=== PATIENT | female | born 1995 | race Asian ===

== ENCOUNTER 2021-10-14 16:44 | Outpatient (REF) | payer OTHER, SELFPAY ==
[2021-10-14 17:31] LABS: Influenza A PCR NEGATIVE (Negative); Influenza B PCR NEGATIVE (Negative); Resp Syncy Virus RNA Qual PCR NEGATIVE (Negative); SARS COV2 PCR INHOUSE NEGATIVE (Negative)
== END 2021-10-14 16:45 | disposition home or self-care (01) ==
LOC: HO.LNP 16:44
PROVIDERS: Visit Provider Internal Medicine
DX: R09.89 Other specified symptoms and signs involving the circulatory and respiratory systems (principal); Z20.822 Contact with and (suspected) exposure to COVID-19
CPT/HCPCS: 0241U

== ENCOUNTER 2023-03-15 11:38 | Outpatient (REF) | payer OTHER, SELFPAY ==
[2023-03-16 12:21] LABS: Influenza A PCR NEGATIVE (Negative); Influenza B PCR NEGATIVE (Negative); Resp Syncy Virus RNA Qual PCR NEGATIVE (Negative); SARS COV2 PCR INHOUSE POSITIVE (Negative)
== END 2023-03-15 11:39 | disposition home or self-care (01) ==
LOC: HO.HMGCLNP 11:38
PROVIDERS: Visit Provider Physician Assistant
DX: Z11.52 Encounter for screening for COVID-19 (principal); R68.89 Other general symptoms and signs
CPT/HCPCS: 0241U

== ENCOUNTER 2023-03-15 15:31 | Outpatient (AMB) | payer OTHER, SELFPAY ==
--- NOTE | 2023-03-15 15:40 | MHC.OFFWIV ---
Intake Vital Signs 03/15/23 15:41 Height 5 ft 5 in Weight 124 lb 4 oz BMI 20.7 BP 110/72 Blood Pressure Location Rt brachial Position Sitting Pulse 90 Pulse Source Pulse Oximeter Temp 98.1 F Temp Source Oral Pulse Oximetry (%) 98 Oxygen Delivery Method Room Air Intake Visit Reasons: EST/cough (lobby masked) Intake Note: Pt is here today for cough and ongoing fevers Patient Tobacco Use Status: Never used Tobacco Allergies No Known Allergies Allergy (Verified 03/15/23 15:42) Do you need a note to return to daycare/school/sports/work: No HPI HPI Comments History of Present Illness Details Patient is a 27yo F with flu like symptoms x 4 days + subjective fever, chills body aches and fatigue Using OTC tylenol/motrin which helps No fever today + congestion and cough Eating/drinking well No CP or SOB No covid test taken [facility] Social History Patient Tobacco Use Status: Never used Tobacco Review of Systems Const Reports body aches, Reports chills, Reports fatigue and Reports fever(s) (subjective) Eyes Denies blurry vision ENT Denies otalgia, Reports nasal congestion, Denies nasal discharge and Denies sore throat Card Denies chest pain and Denies dyspnea Resp Reports chest congestion, Reports cough and Denies dyspnea GI Denies abdominal pain Musc Reports myalgias Endo Reports fatigue Physical Exam Vital Signs: Last Vital Signs Temp 98.1 F 03/15/23 15:41 Pulse 90 03/15/23 15:41 BP 110/72 03/15/23 15:41 Pulse Ox 98 03/15/23 15:41 Oxygen Delivery Method Room Air 03/15/23 15:41 BMI result Body Mass Index 20.7 General: Non-toxic, NAD. Speaking full sentences. Skin: Warm dry throughout Eye: EOMI HENT: Airway patent. Uvula midline. No pharyngeal erythema or edema. No DIGITAL WATCH ASSEMBLER. Respiratory: CTA bilaterally. No wheezes, rales or rhonchi Cardiac: RRR. No murmur MSK: Full ROM extremities. Neurology: A/O. No aphasia or facial droop. Gait without abnormality Psych: Good mood and affect Assessment & Plan Assessment & Plan (1) Flu-like symptoms: Code(s): R68.89 - Other general symptoms and signs Plan: Patient seen and evaluated. Lungs CTA RSV/flu/covid swab obtained tessalon for cough tylenol/motrin fluids/rest Patient gave verbal understanding and had no additional questions or concerns at time of discharge All questions answered Orders: Orders SARS-CoV2/FLU/RSV Today R68.89 - Other general symptoms and signs Medications: New benzonatate 100 mg PO BID-TID PRN 14 caps 0RF cough Coding Level of Care Code Est Pt Level 3 (55295) Diagnoses Flu-like symptoms R68.89
[2023-03-15 15:41] VITALS: BP 110/72; PULSE 90; TEMP 36.7; O2SAT 98; BMI 20.7
== END 2023-03-15 16:22 | disposition home or self-care (01) ==
PROVIDERS: PCP Internal Medicine; Visit Provider Physician Assistant
DX: R68.89 Other general symptoms and signs (principal)
CPT/HCPCS: 99213

== ENCOUNTER 2023-04-19 13:57 | Outpatient (AMB) | payer OTHER, SELFPAY ==
[2023-04-19 14:00] VITALS: BP 106/68; PULSE 97; O2SAT 99; BMI 20.5
--- NOTE | 2023-04-19 14:00 | A.OFFPC_ITS ---
Vital Signs 04/19/23 14:00 Height 5 ft 5 in Weight 123 lb 6 oz BMI 20.5 BP 106/68 Blood Pressure Location Lt brachial Position Sitting Pulse 97 Pulse Source Pulse Oximeter Pulse Oximetry (%) 99 Oxygen Delivery Method Room Air Intake Visit Reasons: Re-establish Care /Request PE Allergies No Known Allergies Allergy (Verified 04/19/23 14:01) Medication List - Last Reconciled 04/19/23 by Miesha Nicole MD No Known Home Meds Tobacco use date assessed: 04/19/23 Dental Screening Dental Screen Date: 04/19/23 Did you have a dental visit in the last 12 months?: Yes Did you have a dental problem in the last 6 months where you did not have access to dental care?: No Was dental information given to patient?: Patient has dentist HPI Re-establish Care /Request PE HPI Details 27-year-old female came in for physical examination and establish care Patient has been having irregular menstrual cycle for a while, she says that she gets menses 5 times a year She is in need of OBGYN as well I have ordered labs I have added thyroid antibodies as patient have a family history of thyroid disease in mother and sister On examination her thyroid seems to be slightly enlarged, I have ordered ultrasound as well We will follow-up after the reports [facility] Social History Housing: Apartment Patient Tobacco Use Status: Never used Tobacco e-Cigarette/Vaping Use: Never Used service: No Cognitive needs: No Hearing needs: No Vision needs: No Questionnaire AUDIT C Alcohol Use Questionnaire (AUDIT-C) 1. How often do you have a drink containing alcohol?: Never 3. How often do you have six or more drinks on one occasion?: Never Total Score: 0 Score Reviewed/Action Taken: Yes Review of Systems Const Denies chills, Denies fever(s) and Denies headache(s) Eyes Denies blurry vision ENT Denies headache(s), Denies nasal discharge, Denies nasal obstruction, Denies odynophagia and Denies sinus pain Card Denies chest pain at rest and Denies chest pain with activity Resp Denies cough and Denies hemoptysis GI Denies diarrhea, Denies odynophagia, Denies vomiting and Denies hematemesis Reports as per HPI Musc Denies abnormal gait Skin/Breast Reports as per HPI Neuro Denies Neuro-related abnormal movements, Denies Abnormal speech present, Denies abnormal gait, Denies headache(s) and Denies Sensory deficit (Neuro) Psych Denies mood swings and Denies paranoia Endo Reports as per HPI James/Lymph Reports as per HPI Aller/Immun Reports as per HPI Physical exam (Primary Care) Vital Signs: Last Vital Signs Pulse 97 04/19/23 14:00 BP 106/68 04/19/23 14:00 Pulse Ox 99 04/19/23 14:00 Oxygen Delivery Method Room Air 04/19/23 14:00 BMI result Body Mass Index 20.5 Tobacco/Smoking Status: Tobacco use Status Tobacco use date assessed 04/19/23 04/19/23 14:08 Patient Tobacco Use Status Never used Tobacco 04/19/23 14:08 e-Cigarette/Vaping Use Never Used 04/19/23 14:08 Const General: cooperative, comfortable and no acute distress Orientation/consciousness: patient oriented x3 HENMT Head: Yes normocephalic and Yes atraumatic Eyes General: appearance normal, both eyes and all related structures Pupils: Equal, round and reactive pupils present EOM: EOMs intact bilaterally Neck Other: Thyroid slightly diffusely enlarged Neck: Yes supple and No lymphadenopathy Resp Effort & Inspection: normal respiratory effort and able to speak in complete sentences Auscultation: clear to auscultation bilaterally Cardio Heart sounds: S1 normal heart sound present and S2 normal heart sound present GI Palpation (GI): Soft to palpation and nontender Auscultation: normal bowel sounds General: Yes no CVA tenderness Back/Spine/Pelvis Back: no CVA tenderness Skin General skin exam: elasticity normal and turgor normal Neuro General: patient oriented x3 and gait normal Cranial nerves: Yes Equal, round and reactive pupils present Speech: No Abnormal speech present Sensory Exam: No Sensory deficit (Neuro) Coordination: tandem gait normal and Romberg test negative Extrem General: Yes normal exam except as noted and No edema Assessment and Plan Assessment & Plan (1) Encounter for general adult medical examination with abnormal findings: Code(s): Z00.01 - Encounter for general adult medical examination with abnormal findings (2) Irregular menses: Code(s): N92.6 - Irregular menstruation, unspecified (3) 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 (4) Family history of thyroid disease: Code(s): Z83.49 - Family history of other endocrine, nutritional and metabolic diseases Plan 27-year-old female came in for physical examination and establish care Patient has been having irregular menstrual cycle for a while, she says that she gets menses 5 times a year She is in need of OBGYN as well I have ordered labs I have added thyroid antibodies as patient have a family history of thyroid disease in mother and sister On examination her thyroid seems to be slightly enlarged, I have ordered ultrasound as well We will follow-up after the reports Orders: Orders Lipid Panel Today N92.6 - Irregular menstruation, unspecified, Z00.01 - Encounter for general adult medical examination with abnormal findings TSH reflex Free T4 Today N92.6 - Irregular menstruation, unspecified, Z00.01 - Encounter for general adult medical examination with abnormal findings Vitamin D 25-OH (D2 and D3) Today N92.6 - Irregular menstruation, unspecified, Z00.01 - Encounter for general adult medical examination with abnormal findings Complete Blood Count Auto Diff Today N92.6 - Irregular menstruation, unspecifie d, Z00.01 - Encounter for general adult medical examination with abnormal findings Comprehensive Met. Panel Today N92.6 - Irregular menstruation, unspecified, Z00.01 - Encounter for general adult medical examination with abnormal findings US thyroid Today E01.0 - Iodine-deficiency related diffuse (endemic) goiter, Z83.49 - Family history of other endocrine, nutritional and metabolic diseases Thyroglobulin Antibodies Today E01.0 - Iodine-deficiency related diffuse (endemic) goiter, Z83.49 - Family history of other endocrine, nutritional and metabolic diseases Referrals OUTBOUND TELEMARKETER Referral N92.6 - Irregular menstruation, unspecified Coding Level of Care Code New Pt Prev Care 18-39yr([id number] Diagnoses Encounter for general adult medical examination with abnormal findings Z00.01 Irregular menses N92.6 Thyromegaly E01.0 Family history of thyroid disease Z83.49
== END 2023-04-19 16:17 | disposition home or self-care (01) ==
PROVIDERS: PCP Internal Medicine; Visit Provider Internal Medicine
DX: Z00.00 Encounter for general adult medical examination without abnormal findings (principal); N92.6 Irregular menstruation, unspecified; E01.0 Iodine-deficiency related diffuse (endemic) goiter; Z83.49 Family history of other endocrine, nutritional and metabolic diseases
CPT/HCPCS: 99395

== ENCOUNTER 2023-04-25 10:38 | Outpatient (REF) | payer OTHER, SELFPAY ==
--- NOTE | ~2023-04-25 | US_ITS ---
EXAMINATION: US THYROID CLINICAL INFORMATION: Iodine-deficiency related diffuse (endemic) goiter. COMPARISON: Thyroid ultrasound 03/18/2019. TECHNIQUE: Linear transducer grayscale and color Doppler examination with attention to the region of the thyroid. FINDINGS: SIZE: Measurements of the thyroid lobes and nodules are given in sagittal, anteroposterior and transverse dimensions respectively. Right Thyroid Lobe: 5.2 x 1.2 x 1.4 cm, volume 4.5 mL. Previously 5.4 x 1.4 x 1.4 cm, volume 5.5 mL. Parenchyma: The gland echotexture is mildly heterogeneous. Thyroid vascularity is increased. Left Thyroid Lobe: 4.7 x 1.3 x 1.2 cm, volume 3.7 mL. Previously 5.3 x 1.2 x 1.3 cm, volume 4.3 mL. Parenchyma: The gland echotexture is mildly heterogeneous. Thyroid vascularity is increased. Isthmus: 0.3 cm in maximum AP dimension. Previously 0.3 cm. No focal thyroid nodule is seen. NODES: No lymphadenopathy is seen in the tissue surrounding the thyroid gland. US/US thyroid IMPRESSION: No suspicious thyroid nodules. Mildly heterogeneous thyroid gland. ACR TI-RADS RECOMMENDATION REFERENCE: Ultrasound-guided fine-needle aspiration, followup ultrasound, no further followup. * TR1 (0 point) and TR2 (2 points): No FNA or followup. * TR3 (3 points): FNA if more than or equal to 2.5 cm in maximum dimension, followup ultrasound in 1, 3 and 5 years if 1.5 to 2.4 cm in maximum dimension. * TR4 (4-6 points): FNA if more than or equal to 1.5 cm in maximum dimension, follow up ultrasound in 1, 2, 3 and 5 years if 1 to 1.4 cm in maximum dimension. * TR5 (more than or equal to 7 points): FNA if more than or equal to 1 cm in maximum dimension, followup ultrasound every year for 5 years if 0.5 to 0.9 cm in maximum dimension. * TR3, TR4 or TR5 nodules that are below the size threshold for followup receive no followup.
[2023-04-25 13:21] LABS: MANUAL DIFF FLAG NO
[2023-04-25 13:35] LABS: Basophils Percent Auto 0.5 % (0-2); Eosinophils Absolute Auto 0.1 X10*3/uL (0.0-0.4); Eosinophils Percent Auto 2.2 % (0-4); Hematocrit 36.9 % (37.0-47.0); Hemoglobin 12.2 g/dl (12.0-16.0); Imm Gran Abs Auto 0.01 X10*3/uL (0.00-0.03); Imm Gran Pct Auto 0.2 % (0.0-0.4); Lymphocytes Absolute Auto 2.1 X10*3/uL (1.2-4.9); Lymphocytes Percent Auto 35.3 % (20-40); Mean Corpuscular HGB Conc 33.1 g/dl (31.0-35.0); Mean Corpuscular Hemoglobin 26.8 pg (27.0-33.0); Mean Corpuscular Volume 81.1 fL (80.0-98.0); Mean Platelet Volume 9.4 fL (9.4-12.3); Monocytes Absolute Auto 0.2 X10*3/uL (0.1-1.2); Monocytes Percent Auto 3.9 % (2-11); Neutrophils Absolute Auto 3.4 x10*3/uL (2.0-8.3); Neutrophils Percent Auto 57.9 % (45-73); Platelet Count 333 X10*3/uL (160-400); Red Blood Count 4.55 X10*6/uL (4.20-5.50); Red Cell Distribution Width 12.5 % (11.0-16.0); White Blood Count 5.8 X10*3/uL (4.8-10.8)
[2023-04-25 13:58] LABS: Alanine Aminotransferase 10 U/L (0-31); Albumin Level 4.3 g/dL (3.5-5.0); Alkaline Phosphatase 83 U/L (39-117); Anion Gap 11 (12-20); Aspartate Amino Transferase 14 U/L (5-31); Blood Urea Nitrogen 16 mg/dL (9-16); Calcium 9.5 mg/dL (8.4-10.2); Carbon Dioxide 27 mmol/L (22-29); Chloride 107 mmol/L (96-108); Cholesterol 147 mg/dL (<200); Estimated Glomerular Filt Rate > 60; Glucose Random 87 mg/dL (60-115); HDL Cholesterol 58 mg/dL (>40); LDL Cholesterol Calculated 79 mg/dL (<100); Potassium 3.9 mmol/L (3.3-5.1); Sodium 141 mmol/L (135-145); Total Protein 7.8 g/dL (6.5-8.0); Triglycerides 54 mg/dL (<150)
[2023-04-25 14:04] LABS: TSH reflex Free T4 2.14 uIU/mL (0.32-4.0)
[2023-04-26 08:54] LABS: Thyroglobulin Antibodies <1 IU/mL (< or = 1)
[2023-04-28 16:08] LABS: Vitamin D 25-OH, D2 <4 ng/mL; Vitamin D 25-OH, D3 4 ng/mL; Vitamin D 25-OH, Total 4 ng/mL (30-100)
== END 2023-04-25 10:39 | disposition home or self-care (01) ==
LOC: HO.HMGCX 10:38
PROVIDERS: PCP Internal Medicine; Visit Provider Internal Medicine
DX: Z00.01 Encounter for general adult medical examination with abnormal findings (principal); N92.6 Irregular menstruation, unspecified; E01.0 Iodine-deficiency related diffuse (endemic) goiter; Z83.49 Family history of other endocrine, nutritional and metabolic diseases
CPT/HCPCS: 36415; 76536; 80053; 80061; 82306; 84443; 85025; 86800

== ENCOUNTER → 2024-03-29 13:46 | Outpatient (BNVA) | payer OTHER, SELFPAY | PROVIDERS: PCP Internal Medicine; Visit Provider Internal Medicine | DX: Z23 Encounter for immunization (principal) | CPT/HCPCS: 90471; 90621 ==

== ENCOUNTER 2024-04-18 07:57 | Outpatient (AMB) | payer OTHER, SELFPAY ==
--- OUTSIDE RECORDS SUMMARY | 2024-04-18 07:59 | XMS_ITS | Encounter Summary ---
Author Organization [employer] Address [address] [facility] [address] [place] [address] Care Team Providers Care Utility Sales Representative Name Role Phone Unavailable Primary Care Provider Unavailabl e Encounter Details Date Type Department Care Team (Latest Contact Info) Description 07/04/2018 Abstract [facility] CONVERSIONS Dental, Provider, DDS Social History Tobacco Use Types Packs/Day Years Used Date Smoking Tobacco: Never Assessed Comments Unknown Sex and Gender Information Value Date Recorded Sex Assigned at Female 01/03/2022 10:34 AM EDT Legal Sex Female 10:34 AM EDT Gender Identity Female 01/03/2022 10:34 AM EDT Sexual Orientation Straight 01/03/2022 10 :34 AM EDT documented as of this encounter Plan of Treatment Not on file documented as of this encounter Visit Diagnoses Not on filedocumented in this encounter
--- OUTSIDE RECORDS SUMMARY | 2024-04-18 07:59 | XMS_ITS | Clinical Summary ---
Author Organization [employer] Address [address] [facility] [address] [place] [address] Care Team Providers Care Microsoft Dynamics Ax Developer Name Role Phone Unavailable Primary Care Provider Unavailabl e Social History Tobacco Use Types Packs/Day Years Used Date Smoking Tobacco: Never Assessed Comments Unknown Sex and Gender Information Value Date Recorded Sex Assigned at Female 01/03/2022 10:34 AM EDT Legal Sex Female 10:34 AM EDT Gender Identity Female 01/03/2022 10:34 AM EDT Sexual Orientation Straight 01/03/2022 10 :34 AM EDT Plan of Treatment Health Maintenance Due Date Last Done Comments Depression Screening 1997 Alcohol/Substance Use Screening 2009 Tobacco Screening 2009 Family Planning (PISQ) 2012 HPV Vaccines (1 - 3-dose series) 2012 DTaP/Tdap/Td Vaccines (1 - Tdap) 2016 Hepatitis B Vaccines (1 of 3 - 19+ 3-dose series) 2016 Pap Smear 2018 COVID-19 Vaccine (1 - 2023-2 5 season) 2023 Influenza Vaccine (#1) 2023 Zoster Vaccines (1 of 2) 09/07/2047 RSV Patients and Pa tients Aged 60 years or older (1 - 1-dose 75+ series) 2072 HIB Vaccines Aged Out No longer eligi ble based on patient's age to complete this topic Hepatitis A Vaccines Aged Out No long er eligible based on patient's age to complete this topic IPV Vaccines Aged Out No longer eligi ble based on patient's age to complete this topic Meningococcal Vaccine Aged Out No ericka becky eligible based on patient's age to complete this topic Pneumococcal Vaccine: Pediat rics (0 to 5 Years) and At-Risk Patients (6 to 49) Years) Aged Out No longer eligible b ased on patient's age to complete this topic RSV under 20 months Aged Out No longe r eligible based on patient's age to complete this topic Rotavirus Vaccines Aged Out No longer eligible based on patient's age to complete this topic
--- NOTE | 2024-04-18 09:15 | MHC.PC.OV ---
Intake Visit Reasons: General health/heavy menstrual period Allergies No Known Allergies Allergy (Verified 04/18/24 09:15) Medication List - Last Reconciled 04/18/24 by Miesha Nicole MD cholecalciferol (vitamin D3) 25 mcg PO DAILY 90 days Tobacco use date assessed: 04/18/24 Dental Screening Dental Screen Date: 04/18/24 Did you have a dental visit in the last 12 months?: Yes Did you have a dental problem in the last 6 months where you did not have access to dental care?: No Was dental information given to patient?: Patient has dentist HPI General health/heavy menstrual period HPI Details patient is 28 YO female , she went for [employer] , and took progesterone only pills to delay her menses afterwards patient started having heavy period for several days she states that flow has lighten up now she is also deficient in Vit D, level need to be monitored has apt coming up for PE labs are needed before PFSH Social History Housing: Apartment Patient Tobacco Use Status: Never used Tobacco e-Cigarette/Vaping Use: Never Used service: No Cognitive needs: No Hearing needs: No Vision needs: No Questionnaire AUDIT C Alcohol Use Questionnaire (AUDIT-C) 1. How often do you have a drink containing alcohol?: Never 3. How often do you have six or more drinks on one occasion?: Never Total Score: 0 Score Reviewed/Action Taken: Yes Review of Systems Const Denies chills and Denies fever(s) ENT Denies epistaxis and Denies nasal discharge Card Denies chest pain Resp Denies chest congestion, Denies cough and Denies hemoptysis GI Denies diarrhea and Denies nausea Skin/Breast Denies rash Neuro Reports no additional complaints Psych Reports no additional complaints Endo Reports no additional complaints Physical exam (Primary Care) Tobacco/Smoking Status: Tobacco use Status Tobacco use date assessed 04/18/24 04/18/24 09:16 Patient Tobacco Use Status Never used Tobacco 04/18/24 09:16 e-Cigarette/Vaping Use Never Used 04/18/24 09:16 Telehealth Telehealth Telehealth Platform: [facility] Location of provider rendering services: practice address Location of patient: address on file Patient Identification confirmed using: Name, : Yes Telehealth method: voice only Patient verbally consented to treatment: Yes Patient verbally consented to billing insurance company: Yes Patient informed of any privacy concerns related to visit: Yes Minutes spent on Phone/Video with Pt.: 13 Coding Level of Care Code Tele Est Pt Level 3 (06222) Diagnoses Dysfunctional uterine bleeding N93.8 Vitamin D deficiency E55.9 Assessment & Plan Assessment & Plan (1) Dysfunctional uterine bleeding: Code(s): N93.8 - Other specified abnormal uterine and vaginal bleeding Category: Medical (2) Vitamin D deficiency: Code(s): E55.9 - Vitamin D deficiency, unspecified Category: Medical Plan patient is 28 YO female , she went for [employer] , and took progesterone only pills to delay her menses afterwards patient started having heavy period for several days she states that flow has lighten up now she is also deficient in Vit D, level need to be monitored has apt coming up for PE labs are needed before Orders: Orders Comprehensive [place]. Panel Fast Today E55.9 - Vitamin D deficiency, unspecified, N93.8 - Other specified abnormal uterine and vaginal bleeding Lipid Panel Today E55.9 - Vitamin D deficiency, unspecified, N93.8 - Other specified abnormal uterine and vaginal bleeding Vitamin D 25-OH (D2 and D3) Today E55.9 - Vitamin D deficiency, unspecified, N93.8 - Other specified abnormal uterine and vaginal bleeding TSH reflex Free T4 Today E55.9 - Vitamin D deficiency, unspecified, N93.8 - Other specified abnormal uterine and vaginal bleeding Complete Blood Count Auto Diff Today E55.9 - Vitamin D deficiency, unspecified, N93.8 - Other specified abnormal uterine and vaginal bleeding
== END 2024-04-18 10:43 | disposition home or self-care (01) ==
LOC: HO.HMCC 07:57
PROVIDERS: PCP Internal Medicine; Visit Provider Internal Medicine
DX: N93.8 Other specified abnormal uterine and vaginal bleeding (principal); E55.9 Vitamin D deficiency, unspecified

== ENCOUNTER 2024-04-23 10:49 | Outpatient (REF) | payer OTHER, SELFPAY ==
--- OUTSIDE RECORDS SUMMARY | 2024-04-23 11:56 | XMS_ITS | Encounter Summary ---
Author Organization [employer] Address [address] [facility] [address] [place] [address] Care Team Providers Care Rail Engineer Name Role Phone Unavailable Primary Care Provider Unavailabl e Encounter Details Date Type Department Care Team (Latest Contact Info) Description 07/04/2018 Abstract [facility] CONVERSIONS Dental, Provider, DDS Social History Tobacco [...]
--- OUTSIDE RECORDS SUMMARY | 2024-04-23 11:56 | XMS_ITS | Clinical Summary ---
Author Organization [employer] Address [address] [facility] [address] [place] [address] Care Team Providers Care Health Center Manager Name Role Phone Unavailable Primary Care Provider [...]
[2024-04-23 13:02] LABS: MANUAL DIFF FLAG NO
[2024-04-23 13:10] LABS: Basophils Percent Auto 0.5 % (0-2); Eosinophils Absolute Auto 0.2 X10*3/uL (0.0-0.4); Eosinophils Percent Auto 2.5 % (0-4); Hematocrit 36.2 % (37.0-47.0); Hemoglobin 12.1 g/dl (12.0-16.0); Imm Gran Abs Auto 0.02 X10*3/uL (0.00-0.03); Imm Gran Pct Auto 0.3 % (0.0-0.4); Lymphocytes Absolute Auto 2.9 X10*3/uL (1.2-4.9); Lymphocytes Percent Auto 37.3 % (20-40); Mean Corpuscular HGB Conc 33.4 g/dl (31.0-35.0); Mean Corpuscular Hemoglobin 26.8 pg (27.0-33.0); Mean Corpuscular Volume 80.1 fL (80.0-98.0); Mean Platelet Volume 9.4 fL (9.4-12.3); Monocytes Absolute Auto 0.4 X10*3/uL (0.1-1.2); Monocytes Percent Auto 4.7 % (2-11); Neutrophils Absolute Auto 4.2 x10*3/uL (2.0-8.3); Neutrophils Percent Auto 54.7 % (45-73); Platelet Count 377 X10*3/uL (160-400); Red Blood Count 4.52 X10*6/uL (4.20-5.50); Red Cell Distribution Width 12.8 % (11.0-16.0); White Blood Count 7.7 X10*3/uL (4.8-10.8)
[2024-04-23 13:32] LABS: Alanine Aminotransferase 13 U/L (0-31); Albumin Level 4.4 g/dL (3.5-5.0); Alkaline Phosphatase 87 U/L (39-117); Anion Gap 11 (12-20); Aspartate Amino Transferase 20 U/L (5-31); Blood Urea Nitrogen 12 mg/dL (9-16); Calcium 9.6 mg/dL (8.4-10.2); Carbon Dioxide 26 mmol/L (22-29); Chloride 106 mmol/L (96-108); Cholesterol 142 mg/dL (<200); Estimated Glomerular Filt Rate > 60; Glucose Fasting 79 mg/dL (60-99); HDL Cholesterol 51 mg/dL (>40); LDL Cholesterol Calculated 77 mg/dL (<100); Potassium 3.8 mmol/L (3.3-5.1); Sodium 139 mmol/L (135-145); Total Protein 8.2 g/dL (6.5-8.0); Triglycerides 71 mg/dL (<150)
[2024-04-23 13:50] LABS: TSH reflex Free T4 2.86 uIU/mL (0.32-4.0)
[2024-04-28 15:13] LABS: Vitamin D 25-OH, D2 <4 ng/mL; Vitamin D 25-OH, D3 15 ng/mL; Vitamin D 25-OH, Total 15 ng/mL (30-100)
== END 2024-04-23 10:50 | disposition home or self-care (01) ==
LOC: HO.HMGCLDS 10:49
PROVIDERS: PCP Internal Medicine; Visit Provider Internal Medicine
DX: E55.9 Vitamin D deficiency, unspecified (principal); N93.8 Other specified abnormal uterine and vaginal bleeding
CPT/HCPCS: 36415; 80053; 80061; 82306; 84443; 85025

== ENCOUNTER 2024-05-10 13:46 | Outpatient (AMB) | payer OTHER, SELFPAY ==
--- NOTE | 2024-05-10 14:02 | MHC.PC.OV ---
Vital Signs 05/10/24 14:04 Height 5 ft 5 in Weight 131 lb BMI 21.8 BP 90/60 Blood Pressure Location Rt brachial Position Sitting Respiration 16 Pulse 66 Pulse Source Pulse Oximeter Temp 97.5 F Temp Source Oral Pulse Oximetry (%) 99 Oxygen Delivery Method Room Air Intake Visit Reasons: PE reschedule Allergies No Known Allergies Allergy (Verified 05/10/24 14:03) Medication List - Last Reconciled 05/10/24 by Miesha Nicole MD cholecalciferol (vitamin D3) 25 mcg PO DAILY 90 days Tobacco use date assessed: 05/10/24 Dental Screening Dental Screen Date: 05/10/24 Did you have a dental visit in the last 12 months?: Yes Did you have a dental problem in the last 6 months where you did not have access to dental care?: No Was dental information given to patient?: Patient has dentist HPI PE reschedule HPI Details Physical exam appointment - The patient is a 28-year-old female presenting with concerns related to vitamin deficiencies. - Blood tests from April 23 reveal vitamin D deficiency. - Reports indicate heavy menstrual bleeding following the use of an oral contraceptive during a travel period at the end of February to the beginning of March. - The menstrual cycle remains irregular, with intervals of one and a half to two months between periods. - Previous pelvic ultrasound returned normal results; however, patient declined trans vaginal ultrasound, she has seen [facility] after that - Thyroid function is deemed normal despite slight enlargement noted in an ultrasound. Health Maintenance - Advised on breast self-exams during showers to monitor for any abnormal lumps. - Discussed the importance of breast cancer awareness, emphasizing self-exams beginning at age 27. Employment - The patient is currently engaged in research work Diagnostic results - Labs: Blood test on April 23 indicated vitamin D deficiency and potential low iron levels. - Imaging: Pelvic ultrasound returned normal results. - Thyroid ultrasound: Slightly enlarged thyroid with normal function. Patient Instructions - Increase intake of vitamin D and iron supplements as indicated to address deficiencies. - Perform regular breast self-exams and report any abnormalities. Review of Systems - General: No fever no chills - Neurological: No headaches no dizziness - Ear nose throat: No sore throat no hearing difficulty no ear pain - Cardiovascular: No syncope, no chest pain, no palpitations - Gastrointestinal: No nausea vomiting or diarrhea - Endocrine: No polyuria polydipsia no heat intolerance - Genitourinary: No dysuria - Skin: No new complaints Physical Exam General: Cooperative, healthy appearing, comfortable, no acute distress Orientation: Patient oriented x3 Limitations: None Head: Normal to inspection Ears: Within normal limit visually Nose: Normal external nose present Face and sinus: Normal facial exam Eyes: Appearance normal, extraocular movement intact pupils reactive Neck: Normal visual inspection and supple Respiratory: Normal respiratory effort and able to speak in complete sentences. Clear to auscultation, no stridor Breast exam benign Cardiovascular: S1 and S2 GI: Normal to inspection. Soft to palpation and nontender Skin: Turgor normal, no acute findings Neuro: Patient oriented x3, motor sensory intact, balance intact, tandem pass Extremities: Normal to inspection, no swelling PFSH Social History Housing: Apartment Patient Tobacco Use Status: Never used Tobacco e-Cigarette/Vaping Use: Never Used service: No Cognitive needs: No Hearing needs: No Vision needs: No Questionnaire PHQ-9 Over the last 2 weeks, how often have you been bothered by any of the following problems? 1. Little interest or pleasure in doing things: more than half the days 2. Feeling down, depressed, or hopeless: several days 3. Trouble falling or staying asleep, or sleeping too much: several days 4. Feeling tired or having little energy: several days 5. Poor appetite or overeating: several days 6. Feeling bad about yourself - or that you are a failure or have let yourself or your family down: several days 7. Trouble concentrating on things, such as reading the newspaper or watching television: several days 8. Moving or speaking so slowly that other people could have noticed. Or the opposite - being so fidgety or restless that you have been moving around a lot more than usual: not at all 9. Thoughts that you would be better off or of hurting yourself in some way: not at all Total score: 8 Depression Screening Interpretation: Positive Depression Screening Follow-up: Declines treatment Depression Screening Done: Yes [id number] - PHQ-9 Billing: Yes Source: Developed by Drs. Jun Castro, Yen Hernandez, Urbano Mendieta and colleagues, with an educational christelle from [employer]. Thrive Questionnaire Date Thrive assessed: 05/10/24 I am a: Patient What is your living situation today?: I have a steady place to live Within the past 12 months, did the food you bought not last and you didn't have the money to get more?: Never true Within the past 12 months, did you worry whether your food would run out before you got money to buy more?: Never true Do you have trouble paying for medicines?: No Do you have trouble getting transportation to medical appointments?: No Do you have trouble paying your heating and electricity bill?: No Do you have trouble taking care of your child, family member or friend?: No Do you have trouble with day-to-day activities such as bathing, preparing meals, shopping, managing finances, etc.?: No Are you currently unemployed and looking for a job?: No Are you interested in more education?: No Please select the resources that you would like help with: None Currently or been in a relationship where the following occur: No concerns reported THRIVE Score: 0 AUDIT C Alcohol Use Questionnaire (AUDIT-C) 1. How often do you have a drink containing alcohol?: Never Total Score: 0 CHARLENE-7 AMB Questionnaire CHARLENE-7 Date CHARLENE - 7 assessed: 05/10/24 Feeling nervous, anxious, or on edge: 1 = Several days Not being able to stop or control worryin = Several days Worrying too much about different things: 0 = Not at all Trouble relaxin = Not at all Being so restless that it is hard to sit still: 0 = Not at all Becoming easily annoyed or irritable: 0 = Not at all Feeling afraid as if something awful might happen: 0 = Not at all Total CHARLENE-7 score (0-4 normal; 5-9 mild; 10-14 moderate; 15-21 severe): 2 Source: Developed by Drs. Jun Castro, Yen Hernandez, Urbano Mendieta and colleagues, with an educational christelle from [employer]. Physical exam (Primary Care) Vital Signs: Last Vital Signs Temp 97.5 F 05/10/24 14:04 Pulse 66 05/10/24 14:04 Resp 16 05/10/24 14:04 BP 90/60 05/10/24 14:04 Pulse Ox 99 05/10/24 14:04 Oxygen Delivery Method Room Air 05/10/24 14:04 BMI result Body Mass Index 21.8 Tobacco/Smoking Status: Tobacco use Status Tobacco use date assessed 05/10/24 05/10/24 14:04 Patient Tobacco Use Status Never used Tobacco 05/10/24 14:04 e-Cigarette/Vaping Use Never Used 05/10/24 14:04 PHQ-9: PHQ-9 Score PHQ-9: Total score 8 05/10/24 14:31 Depression Screening Interpretation: Positive Depression Screening Follow-up: Declines treatment Thrive Assessment: Date of Thrive Assessment Date Thrive assessed 05/10/24 05/10/24 14:10 Currently or been in a relationship where the following occur: No concerns reported Coding Level of Care Code Est Pt Level 3 (82819) Est Pt Prev Care 18-39y(91118) Diagnoses Encounter for general adult medical examination with abnormal findings Z00.01 Microcytic erythrocytes R71.8 Irregular menses N92.6 Vitamin D deficiency E55.9 Positive depression screening Z13.31 Additional Codes PHQ-9 - 59520 - PHQ-9 Billing: Yes ([id number]) Assessment & Plan Assessment & Plan (1) Encounter for general adult medical examination with abnormal findings: Code(s): Z00.01 - Encounter for general adult medical examination with abnormal findings Category: Medical (2) Microcytic erythrocytes: Code(s): R71.8 - Other abnormality of red blood cells Category: Medical (3) Irregular menses: Code(s): N92.6 - Irregular menstruation, unspecified Category: Medical (4) Vitamin D deficiency: Code(s): E55.9 - Vitamin D deficiency, unspecified Category: Medical (5) Positive depression screening: Code(s): Z13.31 - Encounter for screening for depression Category: Medical Plan Physical exam appointment - The patient is a 28-year-old female presenting with concerns related to vitamin deficiencies. - Blood tests from April 23 reveal vitamin D deficiency. - Reports indicate heavy menstrual bleeding following the use of an oral contraceptive during a travel period at the end of February to the beginning of March. - The menstrual cycle remains irregular, with intervals of one and a half to two months between periods. - Previous pelvic ultrasound returned normal results; however, patient declined trans vaginal ultrasound, she has seen [facility] after that - Thyroid function is deemed normal despite slight enlargement noted in an ultrasound. Health Maintenance - Advised on breast self-exams during showers to monitor for any abnormal lumps. - Discussed the importance of breast cancer awareness, emphasizing self-exams beginning at age 27. Employment - The patient is currently engaged in research work Diagnostic results - Labs: Blood test on April 23 indicated vitamin D deficiency and potential low iron levels. - Imaging: Pelvic ultrasound returned normal results. - Thyroid ultrasound: Slightly enlarged thyroid with normal function. Patient Instructions - Increase intake of vitamin D and iron supplements as indicated to address deficiencies. - Perform regular breast self-exams and report any abnormalities. Medications: New ferrous sulfate 324 mg PO BID 90 days 180 tabs 0RF
[2024-05-10 14:04] VITALS: BP 90/60; PULSE 66; RESP 16; TEMP 36.4; O2SAT 99; BMI 21.8
--- OUTSIDE RECORDS SUMMARY | 2024-05-10 15:27 | XMS_ITS | Encounter Summary ---
Author Organization [employer] Address [address] [facility] [address] [place] [id number] Care Team Providers Care Senior Technical Writer Name Role Phone Unavailable Primary Care Provider Unavailabl e Encounter Details Date Type Department Care Team (Latest Contact Info) Description 07/04/2018 Abstract [place] CONVERSIONS Dental, Provider, DDS Social History Tobacco [...]
--- OUTSIDE RECORDS SUMMARY | 2024-05-10 15:27 | XMS_ITS | Clinical Summary ---
Author Organization [employer] Address [address] [facility] [address] [place] [address] Care Team Providers Care Lockmaker Name Role Phone Unavailable Primary Care Provider [...]
== END 2024-05-10 14:30 | disposition home or self-care (01) ==
PROVIDERS: PCP Internal Medicine; Visit Provider Internal Medicine
DX: Z00.00 Encounter for general adult medical examination without abnormal findings (principal); E55.9 Vitamin D deficiency, unspecified; R71.8 Other abnormality of red blood cells; N92.6 Irregular menstruation, unspecified; Z13.31 Encounter for screening for depression

== ENCOUNTER → 2024-05-10 13:46 | Outpatient (BNVA) | payer OTHER, SELFPAY | PROVIDERS: PCP Internal Medicine; Visit Provider Internal Medicine | DX: Z00.01 Encounter for general adult medical examination with abnormal findings (principal); R71.8 Other abnormality of red blood cells; N92.6 Irregular menstruation, unspecified; E55.9 Vitamin D deficiency, unspecified | CPT/HCPCS: 96127; 99212; 99395 ==

== ENCOUNTER 2024-06-27 12:43 | Outpatient (REF) | payer OTHER, SELFPAY ==
--- OUTSIDE RECORDS SUMMARY | 2024-06-27 17:01 | XMS_ITS | Encounter Summary ---
Author Organization [employer] Address [address] [facility] [address] [place] [address] Care Team Providers Care Paraffin Plant Sweater Operator Name Role Phone Unavailable Primary Care Provider Unavailabl e Encounter Details Date Type Department Care Team (Latest Contact Info) Description 07/04/2018 Abstract [facility] CONVERSIONS Dental, Provider, DDS Social [...]
--- OUTSIDE RECORDS SUMMARY | 2024-06-27 17:01 | XMS_ITS | Clinical Summary ---
Author Organization [employer] Address [address] [facility] [address] [place] [address] Care Team Providers Care Horticultural Services Supervisor Name Role Phone Unavailable Primary Care Provider [...]
[2024-06-27 17:06] LABS: Influenza A PCR NEGATIVE (Negative); Influenza B PCR NEGATIVE (Negative); Resp Syncy Virus RNA Qual PCR NEGATIVE (Negative); SARS COV2 PCR INHOUSE NEGATIVE (Negative)
== END 2024-06-27 12:44 | disposition home or self-care (01) ==
LOC: HO.LAB 12:43
PROVIDERS: PCP Internal Medicine; Visit Provider Nurse Practitioner Family
DX: J06.9 Acute upper respiratory infection, unspecified (principal); R05.1 Acute cough
CPT/HCPCS: 0241U; 99212

== ENCOUNTER 2024-06-27 12:43 | Outpatient (AMB) | payer OTHER, SELFPAY ==
[2024-06-27 14:06] VITALS: BP 108/70; PULSE 81; TEMP 36.7; O2SAT 99
--- NOTE | 2024-06-27 14:06 | MHC.OFFWIV ---
Intake Vital Signs 06/27/24 14:06 Weight 132 lb BP 108/70 Blood Pressure Location Rt brachial Position Sitting Pulse 81 Pulse Source Pulse Oximeter Temp 98.1 F Temp Source Oral Pulse Oximetry (%) 99 Oxygen Delivery Method Room Air Intake Visit Reasons: EP-cough, sore throat, headaches, body ache Intake Note: Patient here for cough, body aches, congestion and headaches that has been present for about 4 days. Patient Tobacco Use Status: Never used Tobacco Allergies No Known Allergies Allergy (Verified 06/27/24 14:07) Do you need a note to return to daycare/school/sports/work: Yes HPI HPI Comments History of Present Illness Details 28 y/o Female patient who presents to the walk in clinic with c/o cough, body aches, congestion and headaches that has been present for about 4 days. Reports that all her family members in the same household have Similar symptoms. [facility] Medical History (Updated 06/27/24 @ 14:30 by Florence Prakash NP) Cough Acute respiratory disease Social History Housing: Apartment Patient Tobacco Use Status: Never used Tobacco e-Cigarette/Vaping Use: Never Used service: No Cognitive needs: No Hearing needs: No Vision needs: No Review of Systems Const All systems reviewed & are unremarkable except as noted in HPI and below Physical Exam Vital Signs: Last Vital Signs Temp 98.1 F 06/27/24 14:06 Pulse 81 06/27/24 14:06 BP 108/70 06/27/24 14:06 Pulse Ox 99 06/27/24 14:06 Oxygen Delivery Method Room Air 06/27/24 14:06 Const General: no acute distress Orientation/consciousness: patient oriented x3 HEENT Head: Yes normocephalic Ears: external ears normal and TM abnormal with fluid behind the TM bilateral General nose exam: Normal external nose present Face and sinus: Yes sinuses nontender Mouth: moist mucous membranes Throat: Yes uvula midline Resp Effort & Inspection: normal respiratory effort and able to speak in complete sentences Auscultation: clear to auscultation bilaterally, no crackles, no rales, no rhonchi and no wheezes Cardio Rhythm: regular rhythm Heart sounds: S1 normal heart sound present and S2 normal heart sound present Neuro General: patient oriented x3 Assessment & Plan Assessment & Plan (1) Acute respiratory disease: Code(s): J06.9 - Acute upper respiratory infection, unspecified Plan: Ordered SARs OTC cough/Flu remedies. Rest and hydrate well with warm fluids. (2) Cough: Code(s): R05.9 - Cough, unspecified Qualifiers: Cough type: acute Qualified Code(s): R05.1 - Acute cough Plan: Ordered SARs OTC cough/Flu remedies. Rest and hydrate well with warm fluids. Orders: Orders SARS-CoV2/FLU/RSV Today J06.9 - Acute upper respiratory infection, unspecified Medications: New benzonatate 200 mg (2 x 100 mg) PO BID 60 caps 0RF R05.9 - Cough, unspecified dextromethorphan-guaifenesin 5-100 mg/5 mL (Mucinex Fast-Max DM Max) 10 mL PO Q4-8H PRN 1,000 mL 0RF cough J06.9 - Acute upper respiratory infection, unspecified, R05.9 - Cough, unspecified Coding Level of Care Code Est Pt Level 4 (14650) Diagnoses Acute respiratory disease J06.9 Acute cough R05.1 Cough type: acute Time Spent (min) 20
--- OUTSIDE RECORDS SUMMARY | 2024-06-27 14:55 | XMS_ITS | Encounter Summary ---
Author Organization [employer] Address [address] [facility] [address] [place] [address] Care Team Providers Care Junior Systems Engineer Name Role Phone Unavailable Primary Care Provider Unavailabl e Encounter Details Date Type Department Care Team (Latest Contact Info) Description 07/04/2018 Abstract [facility] CONVERSIONS Dental, Provider, DDS Social History [...]
--- OUTSIDE RECORDS SUMMARY | 2024-06-27 14:55 | XMS_ITS | Clinical Summary ---
Author Organization [employer] Address [address] [facility] [address] [place] [address] Care Team Providers Care Learn To Swim Instructor Name Role Phone Unavailable Primary Care Provider [...]
== END 2024-06-27 14:21 | disposition home or self-care (01) ==
PROVIDERS: PCP Internal Medicine; Visit Provider Nurse Practitioner Family
DX: J06.9 Acute upper respiratory infection, unspecified (principal); R05.1 Acute cough